=== PATIENT | male | born 1985 | race Two or more races ===

== ENCOUNTER 2021-02-21 19:43 | Emergency (ER) | payer OTHER ==
[2021-02-21] MEDS ORDERED: Ketorolac 60 MG/2 ML SDV IM ONE (20:22)
[2021-02-21] MEDS ORDERED: Colchicine 0.6 MG Tab PO ONE (20:22)
[2021-02-21] MEDS ORDERED: predniSONE 20 MG Tab PO ONE (20:23)
--- NOTE | 2021-02-21 20:37 | EDM.PDOC ---
ED HPI GENERAL MEDICAL PROBLEM - General Chief Complaint: Lower Extremity Injury/Pain Stated Complaint: RT FOOT SWELLING, PAIN Time Seen by Provider: 02/21/21 19:45 Source of Information: Reports: Patient History Limitations: Reports: No Limitations - History of Present Illness INITIAL COMMENTS - FREE TEXT/NARRATIVE: HISTORY AND PHYSICAL: History of present illness: Patient is a 36-year-old male who presents to the emergency room with complaints of pain at the base of his toes on his right foot. He states he woke up with the pain radiating across which felt similar to when he previously had gout. He was concerned that it was not gout as the previous gout attack was just of the great toe. He denies any injury, trauma or falls. He is able to bear weight and perform ADLs. No fevers, skin changes or redness. Denies any chest pain, back pain, shortness of breath or cough. Denies any GI or symptoms. No recent travel or sick contacts. Review of systems: As per history of present illness and below otherwise all systems reviewed and negative. Past medical history: As per history of present illness and as reviewed below otherwise noncontributory. Surgical history: As per history of present illness and as reviewed below otherwise noncontributory. Social history: See social history for further information Family history: As per history of present illness and as reviewed below otherwise noncontributory. Physical exam: General: Well developed and well nourished. Alert and orientated x 3. Nontoxic in appearance and in no acute distress. Vital signs are stable and have been reviewed by me. Nursing notes were reviewed. HEENT: Atraumatic, normocephalic, pupils equal and reactive bilaterally, negative for conjunctival pallor or scleral icterus, mucous membranes moist, TMs normal bilaterally, throat clear, neck supple, nontender, trachea midline. No drooling or trismus noted. No meningeal signs. No hot potato voice noted. Lungs: Clear to auscultation bilaterally. No wheezes, rales, or rhonchi. Chest nontender. Normal work of breathing, no accessory muscles used. Heart: S1S2, regular rate and rhythm without overt murmur, gallops, or rubs. No JVD. No peripheral edema Abdomen: Soft, nondistended, nontender. Normoactive bowel sounds. Negative for masses or costovertebral tenderness. Skin: Intact, warm, dry. No lesions or rashes noted. Hematologic: No petechiae or purpra. Mucosa appropriate color and normal nail bed color and refill. Extremities: Atraumatic, moves all extremities per self without difficulty or deficits, pain at the base of the right great toe (most) going across the anterior foot. Good flexion and extension of the toes, ankle. No malleolus tenderness. Cap refill less than 3 seconds. Strong pedal and pretibial pulses. Negative for cords or calf pain. Neurovascular unremarkable. Neuro: Awake, alert, oriented. Cranial nerves II through XII unremarkable. Cerebellum unremarkable. Motor and sensory unremarkable throughout. Exam nonfocal. Psychiatric: Mood and affect are appropriate. Normal thought process. Answering questions appropriately. Please note that the patient was seen and evaluated during the 2019 SARS-CoV-2 novel coronavirus pandemic period. Community viral transmission is ongoing at time of this encounter and the emergency department is operating under pandemic response procedures. Medical Decision Making: We will obtain an x-ray to rule out any occult findings. No concern for septic joint or cellulitis. He has no fever, redness or change in skin pattern. He has had gout previously, if all findings are negative we will treat for gout and have him follow-up with his primary care provider. X-ray is unremarkable. I have talked with the patient about today's findings, in addition to providing specific details for plan of care. Reassessment at the time of disposition demonstrates that the patient is in no acute distress. The patient is stable for discharge, counseling was provided and we discussed in great detail signs and symptoms that would prompt them to return to the Emergency Department. Medication, follow up and supportive care measures were reviewed and discussed. Voices understanding and is agreeable to plan of care. Denies any further questions or concerns at this time. Diagnostics: Foot x-ray Therapeutics: Toradol, prednisone, colchicine Prescription: Prednisone, [place] Impression: Gout Plan: 1. You were evaluated today on an emergent basis. Your symptoms are consistent with GOUT. Take the prednisone as prescribed along with Ibuprofen 400-800mg 3-4 x daily over the next week (take with food). 2. You can Tylenol or [place] as needed for pain management. [place] is a narcotic, please use for moderate to severe pain. This medication may cause drowsiness, so do not take while driving or needing to be functioning outside the house. 3. We encourage you to follow up with your primary care provider and/or recommended specialist in the next few days for re-evaluation and further care/management. 4. If your symptoms should worsen, new symptoms develop or any of the signs and symptoms we discussed should arise please return to the emergency room or call 911 (if needed). Definitive disposition and diagnosis as appropriate pending reevaluation and review of above. Right foot Pain Score (Numeric/FACES): 10 - Related Data Allergies Allergy/AdvReac Type Severity Reaction Status Date / Time No Known Allergies Allergy Verified 02/21/21 20:11 Home Meds: Home Meds Metoprolol Succinate 25 mg PO DAILY 02/21/21 [History] Review of Systems - Review of Systems Review Of Systems: Comprehensive ROS is negative, except as noted in HPI. ED EXAM, GENERAL - Physical Exam Exam: See Below (See dictation) Course - Vital Signs Last Recorded V/S: Last Vital Signs Temp 97.6 F 02/21/21 20:09 Pulse 76 02/21/21 21:19 Resp 20 02/21/21 21:19 BP 131/76 02/21/21 21:19 Pulse Ox 99 02/21/21 21:19 - Orders/Labs/Meds Meds: Medications Discontinued Medications Generic Name Dose Route Start Last Admin Trade Name Adam PRN Reason Stop Dose Admin Colchicine 1.8 mg 02/21/21 20:22 02/21/21 20:36 Colchicine 0.6 Mg Tab PO 02/21/21 20:23 1.8 mg ONETIME ONE Administration Ketorolac Tromethamine 60 mg 02/21/21 20:22 02/21/21 20:36 Ketorolac 60 Mg/2 Ml Sdv IM 02/21/21 20:23 60 mg ONETIME ONE Administration Prednisone 40 mg 02/21/21 20:23 02/21/21 20:36 Prednisone 20 Mg Tab PO 02/21/21 20:24 40 mg ONETIME ONE Administration Departure - Departure Time of Disposition: 20:36 Disposition: Home, Self-Care 01 Clinical Impression: Gout Qualifiers: Gout site: foot Gout etiology: unspecified cause Chronicity: acute Laterality: right Qualified Code(s): M10.9 - Gout, unspecified - Discharge Information Instructions: Gout, [id number] Referrals: PCP,None [Primary Care Provider] - Forms: ED Department Discharge Additional Instructions: The following information is given to patients seen in the emergency department who are being discharged to home. This information is to outline your options for follow-up care. We provide all patients seen in our emergency department with a follow-up referral. The need for follow-up, as well as the timing and circumstances, are variable depending upon the specifics of your emergency department visit. If you don't have a primary care physician on staff, we will provide you with a referral. We always advise you to contact your personal physician following an emergency department visit to inform them of the circumstance of the visit and for follow-up with them and/or the need for any referrals to a consulting specialist. The emergency department will also refer you to a specialist when appropriate. This referral assures that you have the opportunity for follow-up care with a specialist. All of these measure are taken in an effort to provide you with optimal care, which includes your follow-up. Under all circumstances we always encourage you to contact your private physician who remains a resource for coordinating your care. When calling for follow-up care, please make the office aware that this follow-up is from your recent emergency room visit. If for any reason you are refused follow-up, please contact the [facility] Emergency Department at and asked to speak to the emergency department charge nurse. [facility] [address] [place] [address] [place] [address] Thank you for choosing the [facility] emergency department in [place] for your medical needs today. It was a pleasure caring for you. Today you were seen in the emergency department for gout pain in foot 1. You were evaluated today on an emergent basis. Your symptoms are consistent with GOUT. Take the prednisone as prescribed along with Ibuprofen 400-800mg 3-4 x daily over the next week (take with food). 2. You can Tylenol or [place] as needed for pain management. [place] is a narcotic, please use for moderate to severe pain. This medication may cause drowsiness, so do not take while driving or needing to be functioning outside the house. 3. We encourage you to follow up with your primary care provider and/or recommended specialist in the next few days for re-evaluation and further care/management. 4. If your symptoms should worsen, new symptoms develop or any of the signs and symptoms we discussed should arise please return to the emergency room or call 911 (if needed). Sepsis Event Note (ED) - Evaluation Sepsis Screening Result: No Definite Risk - Focused Exam Vital Signs: Vital Signs Temp Pulse Resp BP Pulse Ox 02/21/21 21:19 76 20 131/76 99 02/21/21 20:09 97.6 F 75 18 138/93 H 98
--- NOTE | 2021-02-21 21:01 | CR ---
INDICATION: Pain right foot. COMPARISON: None. TECHNIQUE: Two-view study right foot. FINDINGS: No evidence of acute fracture or dislocation. No bone or soft tissue abnormalities. IMPRESSION: Negative radiographic examination of the right foot. Dictated by Richie Byrne MD @ 02/21/2021 8:59:57 PM (Electronically Signed)
== END 2021-02-21 21:24 | disposition home or self-care (01) ==
LOC: MW.ED 19:43
DX: M10.9 Gout, unspecified (principal)
CPT/HCPCS: 73620; 96372; 99283; A9270; J1885

== ENCOUNTER 2021-06-10 09:18 | Emergency (ER) | payer OTHER ==
[2021-06-10] MEDS ORDERED: Ketorolac 30 MG/ML SDV IM ONE (09:52)
[2021-06-10] MEDS ORDERED: Acetaminophen 500 MG Tab PO ONE (09:52)
[2021-06-10] MEDS ORDERED: Dexamethasone 10 MG/ML SDV IM STA (09:52)
== END 2021-06-10 11:44 | disposition home or self-care (01) ==
LOC: MW.ED 09:18
DX: S89.92XA Unspecified injury of left lower leg, initial encounter (principal); E66.9 Obesity, unspecified; Z68.38 Body mass index [BMI] 38.0-38.9, adult; X50.1XXA Overexertion from prolonged static or awkward postures, initial encounter
CPT/HCPCS: 73562; 96372; 99283; A9270; J1100; J1885

== ENCOUNTER 2021-09-03 10:02 | Emergency (ER) | payer OTHER ==
[2021-09-03] MEDS ORDERED: Acetaminophen/oxyCODONE 325-5 MG Tab PO ONE (10:21)
[2021-09-03 11:24] LABS: POTASSIUM,K 4.1 mmol/L (3.5-5.1)
[2021-09-03 12:08] LABS: CARBON DIOXIDE,CO2 30.5 mmol/L (21.0-32.0)
== END 2021-09-03 12:24 | disposition home or self-care (01) ==
LOC: MW.ED 10:02
DX: S86.912A Strain of unspecified muscle(s) and tendon(s) at lower leg level, left leg, initial encounter (principal); M10.9 Gout, unspecified; Z20.822 Contact with and (suspected) exposure to COVID-19; X58.XXXA Exposure to other specified factors, initial encounter
CPT/HCPCS: 36415; 80053; 84550; 85025; 93971; 99284; A9270; 99283

== ENCOUNTER 2022-02-11 07:36 | Emergency (ER) | payer OTHER ==
[2022-02-11] MEDS ORDERED: diphenhydrAMINE 50 MG/ML SDV IVPUSH ONE (07:41)
[2022-02-11] MEDS ORDERED: Dexamethasone 10 MG/ML SDV IVPUSH ONE (07:41)
[2022-02-11] MEDS ORDERED: Famotidine 20 MG/2 ML SDV IVPUSH ONE (07:41)
[2022-02-11 08:32] LABS: CARBON DIOXIDE,CO2 28.6 mmol/L (21.0-32.0); POTASSIUM,K 3.6 mmol/L (3.5-5.1)
== END 2022-02-11 10:31 | disposition home or self-care (01) ==
LOC: MW.ED 07:36
DX: T78.40XA Allergy, unspecified, initial encounter (principal)
CPT/HCPCS: 36415; 71045; 80053; 81003; 83880; 85025; 93005; 96374; 96375; 99284; J1100; J1200; J3490

== ENCOUNTER 2022-02-14 06:05 | Emergency (ER) | payer OTHER ==
[2022-02-14 07:14] LABS: CARBON DIOXIDE,CO2 27.1 mmol/L (21.0-32.0)
[2022-02-14] MEDS ORDERED: Iopamidol 755 MG/ML 500 ML Multipack Bottle IVPUSH ONE (08:10)
== END 2022-02-14 09:07 | disposition home or self-care (01) ==
LOC: MW.ED 06:05
DX: R63.5 Abnormal weight gain (principal); Z79.899 Other long term (current) drug therapy
CPT/HCPCS: 36415; 71046; 74177; 80053; 80061; 81003; 83735; 83880; 84439; 84443; 85025; 85379; 85610; 93005; 99285; Q9967

== ENCOUNTER 2022-09-14 08:18 | Emergency (ER) | payer OTHER ==
[2022-09-14] MEDS ORDERED: Sodium Chloride 0.9% 2.5 ML Syringe FLUSH PRN (08:26)
[2022-09-14] MEDS ORDERED: Famotidine 20 MG/2 ML SDV IVPUSH ONE (08:26)
[2022-09-14] MEDS ORDERED: diphenhydrAMINE 50 MG/ML SDV IVPUSH ONE (08:26)
[2022-09-14] MEDS ORDERED: Dexamethasone 10 MG/ML SDV IVPUSH ONE (08:26)
[2022-09-14] MEDS ORDERED: Sodium Chloride 0.9% 10 ML Syringe FLUSH PRN (08:26)
[2022-09-14] MEDS ORDERED: Sodium Chloride 0.9% 1,000 ML IV ONE (08:26)
[2022-09-14] MEDS ORDERED: EPINEPHrine 1 MG/1 ML Amp IM ONE (08:28)
[2022-09-14 08:40] LABS: BASOPHILS PERCENT AUTO 0.2 % (0.0-1.5); EOSINOPHILS PERCENT AUTO 0.6 % (0.0-7.0); HEMATOCRIT 47.4 % (38.0-50.0); HEMOGLOBIN 16.1 g/dL (13.0-17.0); LYMPHOCYTES ABSOLUTE AUTO 1.8 K/uL (0.6-2.4); LYMPHOCYTES PERCENT AUTO 34.4 % (16.0-40.0); MEAN CORPUSCULAR HEMOGLOBIN 31.1 pg (27.0-32.0); MEAN CORPUSCULAR VOLUME 91.5 fL (80.0-98.0); MONOCYTES ABSOLUTE AUTO 0.3 K/uL (0.0-0.8); MONOCYTES PERCENT AUTO 5.9 % (0.0-15.0); NEUTROPHILS ABSOLUTE AUTO 3.1 K/uL (1.4-5.7); NEUTROPHILS PERCENT AUTO 58.9 % (48.0-80.0); NRBC ABSOLUTE 0 K/uL; PLATELET COUNT,PLT 287 K/uL (150-400); RED BLOOD CELL COUNT 5.18 M/uL (4.50-5.90); WHITE BLOOD CELL COUNT,WBC 5.23 K/uL (4.0-11.0)
[2022-09-14 09:02] LABS: CALCIUM 9.1 mg/dL (8.5-10.1); CARBON DIOXIDE,CO2 22.8 mmol/L (21.0-32.0); CREATININE 1.5 mg/dL (0.8-1.3); EST CRCL DRUG DOSING (CG) 66.5 mL/min; POTASSIUM,K 4.3 mmol/L (3.5-5.1)
== END 2022-09-14 12:56 | disposition home or self-care (01) ==
LOC: MW.ED 08:18
DX: T78.2XXA Anaphylactic shock, unspecified, initial encounter (principal); Z88.8 Allergy status to other drugs, medicaments and biological substances
CPT/HCPCS: 36415; 80048; 84484; 85025; 93005; 96372; 96374; 96375; 99285; J0171; J1100; J1200; J3490; J7030; 93010; 99291

== ENCOUNTER 2022-11-05 17:27 | Emergency (ER) | payer OTHER | END 2022-11-05 19:02 | disposition home or self-care (01) | LOC: MW.ED 17:27 | DX: M25.571 Pain in right ankle and joints of right foot (principal); Z88.1 Allergy status to other antibiotic agents | CPT/HCPCS: 99283 ==

== ENCOUNTER 2024-06-13 11:14 | Emergency (ER) | payer OTHER ==
[2024-06-13] MEDS: Acetaminophen 500 MG Tab PO ONE (12:03)
[2024-06-13] MEDS: Dexamethasone 4 MG Tab PO ONE (12:03)
[2024-06-13] MEDS: Ketorolac 30 MG/ML SDV IM ONE (12:04)
== END 2024-06-13 12:31 | disposition home or self-care (01) ==
LOC: MW.ED 11:14
DX: S83.92XA Sprain of unspecified site of left knee, initial encounter (principal); I10 Essential (primary) hypertension; I25.10 Atherosclerotic heart disease of native coronary artery without angina pectoris; Z88.8 Allergy status to other drugs, medicaments and biological substances; Z79.899 Other long term (current) drug therapy; Z90.49 Acquired absence of other specified parts of digestive tract; Z98.890 Other specified postprocedural states; W18.40XA Slipping, tripping and stumbling without falling, unspecified, initial encounter; Y93.89 Activity, other specified
CPT/HCPCS: 73562; 96372; 99283; A9270; J1885; J8540

== ENCOUNTER 2024-06-18 12:36 | Emergency (ER) | payer OTHER ==
[2024-06-18] MEDS: Acetaminophen 500 MG Tab PO STA (13:36)
[2024-06-18] MEDS: oxyCODONE 5 MG Tab PO STA (13:37)
[2024-06-18] MEDS: Ondansetron 4 MG Tab.DIS PO STA (13:38)
[2024-06-18] MEDS: methylPREDNISolone Sodium Succinate 40 MG/1 ML SDV IM STA (13:38)
== END 2024-06-18 15:13 | disposition home or self-care (01) ==
LOC: MW.ED 12:36
DX: M25.562 Pain in left knee (principal); I10 Essential (primary) hypertension; I25.10 Atherosclerotic heart disease of native coronary artery without angina pectoris; Z75.8 Other problems related to medical facilities and other health care; Z88.8 Allergy status to other drugs, medicaments and biological substances; Z79.899 Other long term (current) drug therapy
CPT/HCPCS: 96372; 99283; A9270; J2919

== ENCOUNTER 2024-06-24 13:54 | Emergency (ER) | payer OTHER ==
[2024-06-24] MEDS: HYDROmorphone 1 MG/ML Syringe IM ONE (15:32)
== END 2024-06-24 16:05 | disposition home or self-care (01) ==
LOC: MW.ED 13:54
DX: M25.562 Pain in left knee (principal); I10 Essential (primary) hypertension; I25.10 Atherosclerotic heart disease of native coronary artery without angina pectoris; Z88.8 Allergy status to other drugs, medicaments and biological substances; Z79.899 Other long term (current) drug therapy
CPT/HCPCS: 96372; 99283; J1171; 99282

== ENCOUNTER 2024-06-27 19:21 | Emergency (ER) | payer OTHER | END 2024-06-27 20:02 | disposition home or self-care (01) | LOC: MW.ED 19:21 | DX: S89.92XA Unspecified injury of left lower leg, initial encounter (principal); M23.92 Unspecified internal derangement of left knee; I10 Essential (primary) hypertension; I25.10 Atherosclerotic heart disease of native coronary artery without angina pectoris; Z90.49 Acquired absence of other specified parts of digestive tract; Z88.8 Allergy status to other drugs, medicaments and biological substances; Z79.899 Other long term (current) drug therapy; X58.XXXA Exposure to other specified factors, initial encounter; Y93.89 Activity, other specified | CPT/HCPCS: 99282; 99283 ==

== ENCOUNTER 2024-08-06 15:32 | Emergency (ER) | payer OTHER ==
[2024-08-06] MEDS ORDERED: Sodium Chloride 0.9% 10 ML Syringe FLUSH PRN (15:52)
[2024-08-06] MEDS ORDERED: Sodium Chloride 0.9% 2.5 ML Syringe FLUSH PRN (15:52)
[2024-08-06] MEDS: Ketorolac 30 MG/ML SDV IVPUSH ONE (16:27)
[2024-08-06 16:28] LABS: BASOPHILS ABSOLUTE AUTO 0.15 K/uL (0.00-0.20); BASOPHILS PERCENT AUTO 1.2 % (0.0-1.0); EOSINOPHILS ABSOLUTE AUTO 0.25 K/uL (0.00-0.45); HEMATOCRIT 46.9 % (42.0-52.0); HEMOGLOBIN 15.8 g/dL (14.0-18.0); IMMATURE GRAN ABSOLUTE AUTO 0.07 K/uL (0.00-0.05); IMMATURE GRAN PERCENT AUTO 0.6 % (0.0-0.4); LYMPHOCYTES ABSOLUTE AUTO 1.52 K/uL (1.00-4.80); LYMPHOCYTES PERCENT AUTO 12.2 % (24.0-44.0); MEAN CORPUSCULAR HEMOGLOBIN 30.2 pg (28.0-32.0); MEAN CORPUSCULAR HGB CONC 33.7 g/dL (32.0-36.0); MEAN CORPUSCULAR VOLUME 89.7 fL (83.0-99.0); MEAN PLATELET VOLUME 8.7 fL (9.4-12.4); MONOCYTES ABSOLUTE AUTO 0.99 K/uL (0.00-0.80); MONOCYTES PERCENT AUTO 7.9 % (0.0-8.0); NEUTROPHILS ABSOLUTE AUTO 9.53 K/uL (1.80-7.70); NEUTROPHILS PERCENT AUTO 76.1 % (41.0-71.0); PLATELET COUNT,PLT 284 K/uL (150-400); RED BLOOD CELL COUNT 5.23 M/uL (4.52-5.90); WHITE BLOOD CELL COUNT,WBC 12.51 K/uL (3.9-11.3)
[2024-08-06] MEDS: Iopamidol 755 MG/ML 500 ML Multipack Bottle IVPUSH STA (16:44)
[2024-08-06 16:47] LABS: C-REACTIVE PROTEIN 1.84 mg/dL (<0.3); CALCIUM 9.4 mg/dL (8.5-10.1); CARBON DIOXIDE,CO2 28.8 mmol/L (21.0-32.0); CREATININE 1.5 mg/dL (0.8-1.3); EST CRCL DRUG DOSING (CG) 65.23 mL/min; URIC ACID 7.3 mg/dL (2.6-7.2)
[2024-08-06 17:11] LABS: CORONAVIRUS COVID-19 NAA NEGATIVE (NEGATIVE); INFLUENZA A NAA NEGATIVE (NEGATIVE); INFLUENZA B NAA NEGATIVE (NEGATIVE)
== END 2024-08-06 19:21 | disposition home or self-care (01) ==
LOC: MW.ED 15:32
DX: M10.9 Gout, unspecified (principal); I10 Essential (primary) hypertension; I25.10 Atherosclerotic heart disease of native coronary artery without angina pectoris; Z88.8 Allergy status to other drugs, medicaments and biological substances
CPT/HCPCS: 0240U; 36415; 73701; 80048; 84550; 85025; 85652; 86140; 96374; 99284; J1885; Q9967; 99283

== ENCOUNTER 2024-12-22 08:39 | Emergency (ER) | payer OTHER ==
[2024-12-22] MEDS: methylPREDNISolone Sodium Succinate 125 MG/2 ML SDV IM ONE (09:26)
[2024-12-22] MEDS: Ketorolac 30 MG/ML SDV IM ONE (09:27)
== END 2024-12-22 10:38 | disposition home or self-care (01) ==
LOC: MW.ED 08:39
DX: M79.671 Pain in right foot (principal); I10 Essential (primary) hypertension; I25.10 Atherosclerotic heart disease of native coronary artery without angina pectoris; E78.00 Pure hypercholesterolemia, unspecified; Z79.899 Other long term (current) drug therapy; Z88.8 Allergy status to other drugs, medicaments and biological substances; Z86.39 Personal history of other endocrine, nutritional and metabolic disease
CPT/HCPCS: 73630; 96372; 99283; J1885; J2919